=== PATIENT | male | born 1985 | race African-American/Black ===

== ENCOUNTER 2017-02-16 20:34 | Inpatient (IN) | payer OTHER ==
--- NOTE | ~2017-02-16 | PN ---
Unit #: [id number] #: [id number] Patient: TARSHA OSMAN [id number] [facility] [address] [place] [address] [id number] MR#: [id number] NAME: TARSHA OSMAN. ROOM: P180 Age: 31 Sex: M Admission Date: 02/16/2017 : 1985 Attending Physician: Da Mcmillan M.D. Admitting Physician: Da Mcmillan M.D. Primary Care Physician: Primary Care Physician Christiana SETHI PROGRESS NOTES DATE 02/18/2017 DISCUSSION Mr. Osman is a 31-year-old white male who was seen today and chart was reviewed and case was discussed with the staff. He has been anxious, withdrawn and seclusive to himself. Meanwhile, he has been cooperative with treatment recommendations and has been taking medications and tolerating them fairly well with ___ side effects. MENTAL STATUS EXAMINATION Young male who was casually dressed with fair personal hygiene and appears to be in slight distress and discomfort. He was awake and alert on interaction with intact orientation. His mood was anxious and depressed with congruent affect. He suicidal or homicidal ideation. His insight and judgement remains slightly impaired. TREATMENT PLAN 1. Will continue on his current medications and treatment protocol. Will monitor his response to the medications and make further adjustments as needed. 2. Will continue to follow up. Dictated by... Tejinder King/milad TD: 02/18/2017 20:51 JOB #: [id number] Unit #: [id number] #: [id number] Patient: TARSHA OSMAN JOSSIE PROGRESS NOTES Page 1 of 1 X Da Mcmillan MD PROGRESS NOTE
--- NOTE | ~2017-02-16 | DS ---
Unit #: [id number] #: [id number] [facility]: [facility]ION [id number] [facility] [address] [place] [address] [id number] I MR#: [id number] NAME: TARSHA LION. ROOM: P180 Age: 31 Sex: M Admission Date: 02/16/2017 : 1985 Discharge Date: Attending Physician: Da Mcmillan M.D. Primary Care Physician: Primary Care Physician No DISCHARGE SUMMARY IDENTIFYING DATA Mr. Lion is a 31-year-old, single, male, who is a resident of [place], [place], and is known to us from previous encounter, was self-referred to the hospital on a voluntary basis. DISCHARGE DIAGNOSES Psychiatric: Opioid dependence, moderate and acute withdrawals; opioid-induced mood disorder. Medical: None. Stressors: Moderate psychosocial stressors. HISTORY OF PRESENT ILLNESS Please see initial psychiatric evaluation for details. PAST PSYCHIATRIC HISTORY Please see initial psychiatric evaluation for details. PAST MEDICAL HISTORY Please see initial psychiatric evaluation for details. HOSPITAL COURSE The patient was [facility] and was oriented to the hospital environment. Routine p.r.n. medications were initiated, and he was started back on his home medications and medications were adjusted and he was closely monitored. He was taking the medications regularly and was tolerating them fairly well and was able to show a decent therapeutic response and as such, it was decided that he will be discharged home and will continue treatment on an outpatient basis. DISCHARGE MEDICATIONS None. DISCHARGE CONDITION Stable. PROGNOSIS Fair. Dictated by... Unit #: [id number] #: [id number] Patient: TARSHA LION Tejinder King/maylin TD: 02/21/2017 07:05 JOB #: [id number] DISCHARGE SUMMARY Page 1 of 1 X Da Mcmillan MD X DISCHARGE SUMMARY
--- NOTE | ~2017-02-16 | PA ---
Unit #: [id number] #: [id number] [facility]: [facility]ION [id number] [facility] [address] [place] [address] [id number] I MR#: [id number] NAME: TARSHA LION. ROOM: P180 Age: 31 Sex: M Admission Date: 02/16/2017 : 1985 Date of Assessment: Attending Physician: Da Mcmillan M.D. Admitting Physician: Da Mcmillan M.D. Primary Care Physician: Primary Care Physician No PSYCHIATRIC ASSESSMENT IDENTIFYING DATA Mr. Lion is a 31-year-old, single, male, who is a resident of [place], [place] and is known to us from his previous encounter, was self-referred to the hospital on a voluntary basis. CHIEF COMPLAINT "I've been using daily about a gram of heroin IV." HISTORY OF PRESENT ILLNESS Mr. Lion is a 31-year-old white male with history of substance abuse and dependence, who is known to us from previous encounter, and was self-referred to the hospital stating that he was in rehab and was kicked out about 2-1/2 months ago and he started using again and reports that he has been using daily a gram of IV heroin and does report suicidal ideations and reports he just wishes what would happen and does report some active detox and was seen to be anxious, restless, irritable, and expressing feelings of hopelessness and helplessness, and suicidal ideations and was seen to be danger to self and as such, recommendation for inpatient level of care for safety and stabilization was made and the patient was transferred to us. SUBSTANCE ABUSE HISTORY The patient reports history of alcohol, cannabis, cocaine, opioids, amphetamines, and benzodiazepine abuse, though currently opioids appear to be his drug of choice as he reports that he has been using a gram of IV heroin on daily basis. PAST PSYCHIATRIC HISTORY The patient has had a [facility] and review of the medical records indicate currently he is not active in any treatment program, is not seeing a psychiatrist, and is not taking any psychotropic medications. PAST MEDICAL HISTORY No acute or chronic medical illnesses. ALLERGIES No known medication allergies. CURRENT MEDICATIONS None. PERSONAL AND SOCIAL HISTORY Unit #: [id number] #: [id number] Patient: TARSHA LION A 31-year-old, single, male, who reports that he is unemployed and he is homeless and has poor social support system. MENTAL STATUS EXAMINATION Young male, who was casually dressed with fair personal hygiene, appears to be in no acute distress or discomfort. He was awake and alert on interaction with intact orientation. His mood was anxious and depressed with a congruent affect. His speech was slow and restricted in content. His thought processes were disorganized with some looseness of associations and suicidal ideations. His insight and judgment remain significantly impaired. DIAGNOSTIC IMPRESSION Psychiatric: Opioid dependence, moderate and acute withdrawals; opioid-induced mood disorder. Medical: None. Stressors: Moderate psychosocial stressors. TREATMENT PLAN 1. The patient has presented with history of substance abuse and mood disorder, and has been decompensating and will need inpatient hospitalization for detoxification, safety, and stabilization. We will start him on detox protocol. We will closely monitor for any worsening withdrawal symptoms. 2. Supportive therapy was provided to the patient. 3. Safe, structured, and nourishing environment will be provided. ESTIMATED LENGTH OF STAY 4 to 5 days. ABILITY TO HELP SELF Limited. WILLINGNESS TO HELP SELF The patient appears to be willing to help self. STRENGTHS 1. Communicative. 2. Cooperative. PROBLEMS 1. Chronic chemical dependency. 2. Chronic dysphoric symptoms. 3. Poor social support system. DISCHARGE CRITERIA This will be contingent upon the patient's ability to show resolution of his depression and anxiety and his ability to stay safe to himself, particularly after discharge from the hospital. Dictated by... Da Mcmillan M.D. [facility] Unit #: [id number] #: [id number] Patient: TARSHA LION TD: 02/17/2017 06:56 JOB #: [id number] PSYCHIATRIC ASSESSMENT Page 1 of 1 X Da Mcmillan MD PSYCHIATRIC ASSESSMENT
--- NOTE | ~2017-02-16 | PN ---
Unit #: [id number] #: [id number] Patient: TARSHA OSMAN [id number] [facility] [address] [place] [address] [id number] I MR#: [id number] NAME: TARSHA OSMAN. ROOM: P180 Age: 31 Sex: M Admission Date: 02/16/2017 : 1985 Attending Physician: aD Mcmillan M.D. Admitting Physician: Da Mcmillan M.D. Primary Care Physician: Primary Care Physician Christiana SETHI PROGRESS NOTES DATE OF SERVICE: 02/19/2017 SUBJECTIVE Mr. Osman is a 31-year-old male with mood disorder and substance abuse, who was seen today and chart was reviewed and case was discussed with the staff. He remains anxious, withdrawn, depressed, and rather seclusive to himself. Meanwhile, he has been cooperative with treatment recommendations and has been taking the medications and tolerating them fairly well with no reported side effects. MENTAL STATUS EXAMINATION Young male who was casually dressed with fair personal hygiene, appears to be in no acute distress or discomfort. He was awake and alert on interaction with intact orientation. His mood was anxious with a congruent affect. He denies any suicidal or homicidal ideations. His insight and judgment remain slightly impaired. TREATMENT PLAN 1. We will continue him on his current medications and treatment protocol. We will monitor his response to the medications and make further adjustments as needed. 2. We will continue to follow up. Dictated by... Tejinder King/maylin TD: 02/20/2017 22:56 JOB #: [id number] [facility] PROGRESS NOTES Page 1 of 1 X Da Mcmillan MD PROGRESS NOTE
--- NOTE | ~2017-02-16 | PN ---
Unit #: [id number] #: [id number] Patient: TARSHA LION [id number] [facility] [address] [place] [address] [id number] MR#: [id number] NAME: TARSHA LION. ROOM: P180 Age: 31 Sex: M Admission Date: 02/16/2017 : 1985 Attending Physician: Da Mcmillan M.D. Admitting Physician: Tejinder King NOTES DATE OF SERVICE: 02/20/2017 SUBJECTIVE Mr. Lion is a 31-year-old male who was seen today and chart was reviewed and case was discussed with the staff. He has been anxious and withdrawn, though has not shown any agitation or irritability. Meanwhile, he has been cooperative with treatment recommendations and has been taking the medications and tolerating them fairly well with no reported side effects. MENTAL STATUS EXAMINATION Young male who was casually dressed with fair personal hygiene, appears to be in no acute distress or discomfort. He was awake and alert on interaction with intact orientation. His mood was anxious and depressed with a congruent affect. He denies any suicidal or homicidal ideations. His insight and judgment remain slightly impaired. TREATMENT PLAN 1. We will continue him on his current medications and treatment protocol. We will monitor his response and make further adjustments as needed. 2. We will continue to follow up. Dictated by... Tejinder King/maylin TD: 02/20/2017 23:27 JOB #: [id number] JOSSIE PROGRESS NOTES Page 1 of 1 X Da Mcmillan MD PROGRESS NOTE
--- NOTE | ~2017-02-16 | HP ---
Unit #: [id number] #: [id number] Patient: TARSHA OSMAN [id number] [place] [address] [id number] MR#: [id number] NAME: TARSHA OSMAN. ROOM: P180 Age: 31 Sex: M Admission Date: 02/16/2017 : 1985 Attending Physician: Da Mcmillan M.D. Admitting Physician: Da Mcmillan M.D. Primary Care Physician: Primary Care Physician No HISTORY AND PHYSICAL HISTORY OF PRESENT ILLNESS Tarsha is a 31 year old admitted to [facility] because of his continued drug use. He has had other admissions to this facility for the same. PAST MEDICAL HISTORY 1. Long history of polysubstance abuse to include IV heroin. 2. High blood pressure. 3. Hyperlipidemia. 4. Seizure disorder. PAST SURGICAL HISTORY Umbilical hernia repair. ALLERGIES No known drug allergies. SOCIAL HISTORY Smokes 2 packs per day. Drinks alcohol on occasion. Admits to a long history of illicit substance abuse to include IV heroin and methamphetamine. FAMILY HISTORY Medically noncontributory. REVIEW OF SYSTEMS CONSTITUTIONAL: No fever or chills. HEENT: Denies any sore throat, ear pain or runny nose. CARDIOVASCULAR: Denies chest pain, irregular heart rhythm or palpitations. CHEST: Denies shortness of breath or cough. No hemoptysis. GASTROINTESTINAL: Denies nausea, vomiting, diarrhea or chronic constipation. ENDOCRINE: Denies history of increased thirst or urination. No recent significant weight loss or gain. GENITOURINARY: Denies dysuria, frequency, or hematuria. SKIN: Denies any rashes. HEMATOLOGIC: Denies history of increased bleeding or bruising. MUSCULOSKELETAL: Denies any hot, swollen joints. No generalized muscle pain. NEUROLOGIC: Denies problems with vision or speech. No frequent, severe headaches. No numbness, tingling or weakness in any extremities. Denies loss of bladder or bowel control. CURRENT MEDICATIONS Unit #: [id number] #: [id number] Patient: TARSHA OSMAN Detox protocol. PHYSICAL EXAMINATION GENERAL: Alert, well-nourished, in no apparent distress. VITAL SIGNS: Blood pressure 126/66, heart rate 60, respirations 16, temperature 98.6. WEIGHT: 212. HEIGHT: 6 feet 1 inch. SKIN: Warm and dry without rash or lesion. HEENT: Normocephalic. TMs not viewed. Oral and nasal passages clear. Conjunctivae clear. PERRLA. EOMs intact. NECK: Supple without lymphadenopathy or thyromegaly. HEART: Regular rate and rhythm without murmur. LUNGS: Clear. ABDOMEN: Soft, nontender. : Not done. EXTREMITIES: No evidence of cyanosis, clubbing or edema. Moves all without focal deficit. NEUROLOGICAL: Grossly within normal limits. Cranial Nerves: II: Visual simon are intact. III, IV AND : Extraocular movements are intact. Pupils are equal, round and reactive to light. V: Facial sensation is grossly normal. VII: Facial movements and expression are normal. VIII: Auditory acuity grossly intact. IX, X: Uvula is midline. Phonation is normal. XI: Patient shrugs shoulders and turns head normally. XII: Tongue protrudes in the midline. Sensory and Motor Function: Sensory and motor sensation is grossly normal. Motor: moves all extremities well. Coordination: Gait is normal. Deep Tendon Reflexes: Intact. IMPRESSION Psychiatric admission. RECOMMENDATIONS PSYCHIATRIC: Per psychiatrist. MEDICAL: See no contraindications to participate in facility's activities. MEDICAL PROGNOSIS Good. MEDICAL CONDITION Stable. Dictated by... Ynes Esteves PLucyALucy-Madisyn. for Tejinder Ballard/milad TD: 02/17/2017 16:55 JOB #: [id number] Unit #: [id number] #: [id number] Patient: TARSHA OSMAN HISTORY AND PHYSICAL Page 1 of 1 X Ynes Esteves HISTORY AND PHYSICAL
[~2017-02-16 20:34] MED LIST: AMOXICILLIN500 M1 PO; FLONASE16 GM; MEDROL DOSEPAK4 MG DOB; NO MEDICATIONS; ORUDIS75 M1 DOB; TYLENOL #3 PO; VICODIN 5/500 T1 TAB PO; ZYRTEC-D T1 TAB.SR1 PO
[2017-02-18 09:41] LABS: BASOPHIL# 0.1 X10e3 (0-0.3); BASOPHIL% 0.7 % (0-2.5); EOSINOPHIL# 0.4 X10e3 (0-0.7); EOSINOPHIL% 3.5 % (0.0-7.0); HEMATOCRIT 41.7 % (38.0-50.0); LYMPHOCYTE# 2.6 X10e3 (1.0-3.5); LYMPHOCYTE% 26.3 % (17.0-45.0); MEAN CELL VOLUME 90.6 FL (83-96); MEAN CORPUSCULAR HEMOGLOBIN 30.3 PG (28-34); MEAN CORPUSCULAR HGB CONC 33.5 g/dL (30-36); MEAN PLATELET VOLUME 7.5 FL (6.5-11.5); MONOCYTE# 0.5 X10e3 (0-1.0); MONOCYTE% 4.6 % (3.0-12.0); NEUTROPHIL# 6.5 X10e3 (1.5-7.1); NEUTROPHIL% 64.9 % (40-75); PLATELET COUNT 241 X10e3 (140-420); RED CELL DISTRIBUTION WIDTH 12.8 % (11.0-15.5); WHITE BLOOD COUNT 10.1 X10e3 (4.0-10.5)
[2017-02-18 09:42] LABS: DIFF IND NO
[2017-02-18 12:22] LABS: ALBUMIN SERUM 3.2 g/dL (3.5-5.0); BILIRUBIN,TOTAL 0.6 mg/dL (0.2-2.0); BUN/CREATININE RATIO 15.71; CREATININE SERUM 0.7 mg/dL (0.6-1.4); GLOM FILT RATE Estimated 146.8 mL/min (>60); PROTEIN TOTAL SERUM 5.8 g/dL (6.0-8.3)
[2017-02-20 11:35] LABS: URINE APPEARANCE CLEAR; URINE BILIRUBIN NEG (NEG); URINE BLOOD NEG (NEG); URINE COLOR YELLOW; URINE GLUCOSE NEG (NEG); URINE KETONE NEG (NEG); URINE LEUKOCYTE ESTERASE NEG (NEG); URINE NITRATE NEG (NEG); URINE PH 5.5 (5-8); URINE PROTEIN NEG (NEG); URINE SPECIFIC GRAVITY 1.013 (1.003-1.035); URINE UROBILINOGEN 0.2 MG/DL (NEG)
[2017-02-21 10:47] LABS: AMPHETAMINE NEG (NEG); BARBITURATES NEG (NEG); BENZODIAZEPINES NEG (NEG); COCAINE NEG (NEG); MARIJUANA NEG (NEG); OPIATES NEG (NEG); TRICYCLIC ANTIDEPRESSANTS NEG (NEG); U METHADONE NEG (NEG)
== END 2017-02-21 11:00 | DRG 897 ==
LOC: P1E 22:15
PROVIDERS: Psychiatry & Neurology Psychiatry
PROC: HZ2ZZZZ Detoxification Services for Substance Abuse Treatment (ICD-10-PCS; principal; 2017-02-16)
DX: F11.23 Opioid dependence with withdrawal (principal); F11.24 Opioid dependence with opioid-induced mood disorder; I10 Essential (primary) hypertension; F17.210 Nicotine dependence, cigarettes, uncomplicated; E78.5 Hyperlipidemia, unspecified; G40.909 Epilepsy, unspecified, not intractable, without status epilepticus
CPT/HCPCS: 80053; 80307; 81003; 85025; 86592